=== PATIENT | female | born 1970 | race Asian ===

== ENCOUNTER 2016-10-18 15:58 | Emergency (ER) | payer MEDICAID, OTHER ==
[~2016-10-18] VITALS: Ht 167.6 cm; Wt 59.0 kg
[~2016-10-18 15:58] MED LIST: BENADRYL25 MG ORAL; GABAPENTIN100 MG ORAL; IBUPROFEN600 MG ORAL; NKM; NORCO 5-325 TA1 EAC1 ORAL; VIBRAMYCIN100 MG ORAL
[2016-10-18 16:10] VITALS: BP 127/74
[2016-10-18] MEDS ORDERED: DiphenhydrAMINE 50mg/ml Inj IM ONE (16:15)
[2016-10-18] MEDS ORDERED: Ipratropium 0.02% Inh Soln 2.5ml UD HHN ONE (16:15)
[2016-10-18] MEDS ORDERED: PredniSONE 20mg tab ORAL ONE (16:15)
[2016-10-18] MEDS ORDERED: Albuterol ud Inhalation HHN ONE (16:15)
[2016-10-18] MEDS ORDERED: PROMETHAZINE-D118 ML ORAL (16:51)
[2016-10-18] MEDS ORDERED: PREDNISONE20 MG ORAL (16:51)
[2016-10-18] MEDS ORDERED: PROAIR HFA8.5 GM INH (16:51)
--- NOTE | 2016-10-18 21:21 | Emergency Room Report ---
History of Present Illness General Chief Complaint: Dyspnea/Respdistress Source: Patient Present Illness HPI The patient is a 46 old female presenting for wheezing and a feeling of shortness of breath. She denies any recent travel but admits to being in close contact with someone who was diagnosed with bronchitis recently. She admits to having coughing for the past week and produced yellow and green sputum. She also admits to subjective fever and chills. She denies allergy but does admit taking azithromycin and touching a dog today. She began to feel increased wheezing and began to feel anxious and came to the ED. She denies any other symptoms including dizziness, CP, abd pain, hemoptysis, rash Allergies: Coded Allergies: PENICILLIN (Verified Allergy, Unknown, 12/19/14) Patient History Past Medical History: see triage record Pertinent Family History: none Last Menstrual Period: now Now: No Reviewed Nursing Documentation: PMH: Agreed, PSxH: Agreed Nursing Documentation-PMH Past Medical History: No History, Except For Review of Systems All Other Systems: negative except mentioned in HPI Physical Exam Vital Signs Date Time Temp Pulse Resp B/P Pulse Ox O2 Delivery O2 Flow Rate FiO2 10/18/16 16:00 98.1 84 2 130/71 93 Room Air 10/18/16 16:30 21 Sp02 EP Interpretation: reviewed, normal General Appearance: no apparent distress, alert, GCS 15, non-toxic Head: normocephalic, atraumatic Eyes: bilateral eye PERRL, bilateral eye normal inspection ENT: hearing grossly normal, normal pharynx, no angioedema, normal voice Neck: full range of motion, supple/symm/no masses Respiratory: chest non-tender, normal breath sounds, speaking full sentences, wheezing - diffuse Cardiovascular #1: regular rate, rhythm, no edema Musculoskeletal: back normal, gait/station normal, normal range of motion, non- tender Neurologic: alert, oriented x3, responsive, motor strength/tone normal, sensory intact, speech normal Psychiatric: judgement/insight normal, memory normal, mood/affect normal, no suicidal/homicidal ideation Skin: normal color, no rash, warm/dry, well hydrated Medical Decision Making PA Attestation Dr. Wahl is my supervising physician. Patient management was discussed with my supervising physician Diagnostic Impression: Primary Impression: Bronchitis ER Course The patient is a 46 old female presenting for wheezing and a feeling of shortness of breath Differential diagnoses considered but not limited to: Asthma, bronchitis, pneumonia, anxiety, anaphylaxis, among others PE: all vitals WNL. NAD HEENT unremarkable. No facial edema. oropharynx patent. Lungs: diffuse wheezing CXR unremarkable She is given a breathing treatment, oral steroids, and IM benadryl and feels better. She is told to follow up with primary doctor and possibly obtain an allergy panel. She will stop using azithromycin as this may be a cause for increased SOB. She will FU with PMD for change of antibiotic. ER precautions given Chest X-Ray Diagnostic Results Chest X-Ray Diagnostic Results : Chest X-Ray Ordered: Yes # of Views/Limited/Complete: 1 View Indication: Shortness of Breath EP Interpretation: Yes Interpretation: no consolidation, no effusion, no pneumothorax, no acute cardiopulmonary disease Impression: No acute disease Interpreting ER Provider: Dr. Vish SUNSHINE Scribe Text I am acting as scribe for my supervising physician. My supervising physician's interpretation of the chest xrays are there is no consolidation, no effusion, no acute cardiopulmonary disease, no pneumothorax Last Vital Signs Date Time Temp Pulse Resp B/P Pulse Ox O2 Delivery O2 Flow Rate FiO2 10/18/16 17:11 98.0 87 14 127/74 96 Room Air 10/18/16 16:30 21 Status: improved Disposition: HOME, SELF-CARE Condition: Improved Scripts D-Methorphan Hb/Prometh Hcl* (PROMETHAZINE-DM SYRUP*) 118 Ml Syrup 5 ML ORAL Q6H Y for For Cough, #118 ML 0 Refills Prov: TERZIAN,ALEXYS P.A. 10/18/16 Prednisone* (PREDNISONE*) 20 Mg Tablet 40 MG ORAL DAILY, #10 TAB Prov: TERZIAN,ALEXYS P.A. 10/18/16 Albuterol Sulfate* (PROAIR HFA*) 8.5 Gm Hfa.aer.ad 2 PUFFS INH Q6H, #8.5 GM 0 Refills Prov: TERZIAN,ALEXYS P.A. 10/18/16 Referrals: [facility]ERRIN (PCP) Patient Instructions: Acute Bronchitis Additional Instructions: I discussed my findings with the patient. All questions and concerns have been answered. Treatment and medication compliance have been addressed. I advised the patient that they need to follow up with PMD in 3-5 days. Return to ED if pain remains or worsens, cough worsens or remains, you notice blood in your sputum, you notice wheezing, you experience a fever, or if needed for any reason. Patient verbalized understanding of discharge instructions. ALEXYS GUERRERO Oct 18, 2016 21:21
--- NOTE | 2016-10-19 12:39 | Diagnostic Imaging Report ---
Indication: Chest pain Comparison: None A single view chest radiograph was obtained. Findings: Cardiomediastinal appearance is within normal limits for age. Pulmonary vascularity is appropriate. The diaphragmatic contour is smooth and costophrenic angles are sharp. No pleural effusions are identified. The bones are unremarkable. Impression: No acute findings
== END 2016-10-18 17:12 | disposition home or self-care (01) ==
LOC: EMR 16:55
DX: J40 Bronchitis, not specified as acute or chronic (principal); Z88.0 Allergy status to penicillin
CPT/HCPCS: 71010; 94640; 94664; 96372; 99284; J1200

== ENCOUNTER 2017-02-03 10:39 | Emergency (ER) | payer MEDICAID, OTHER ==
[~2017-02-03] VITALS: Ht 170.2 cm; Wt 56.2 kg
[~2017-02-03 10:39] MED LIST changes: +PREDNISONE20 MG ORAL; +PROAIR HFA8.5 GM INH; +PROMETHAZINE-D118 ML ORAL
[2017-02-03] MEDS: Albuterol ud Inhalation HHN SCH ×3 (11:26→11:58)
[2017-02-03] MEDS: Ipratropium 0.02% Inh Soln 2.5ml UD HHN SCH ×3 (11:26→11:58)
[2017-02-03] MEDS ORDERED: DiphenhydrAMINE 50mg/ml Inj IVP ONE (11:45)
[2017-02-03 11:51] VITALS: BP 128/79
[2017-02-03] MEDS ORDERED: ALBUTEROL SULF8.5 GM INH (12:26)
[2017-02-03] MEDS ORDERED: PREDNISONE20 MG ORAL (12:26)
[2017-02-03] MEDS ORDERED: CLARITIN-D 241 EACH PO (12:26)
[2017-02-03] MEDS ORDERED: PROMETHAZINE-C118 M1 ORAL (12:26)
[2017-02-03 12:27] VITALS: BP 128/79
--- NOTE | 2017-02-03 15:19 | Emergency Room Report ---
History of Present Illness General Chief Complaint: Upper Respiratory Illness Source: Patient Present Illness HPI 46-year-old female presents to ED for evaluation. Patient states her last 2 days she's been having a cough with shortness of breath. Patient states cough is productive with yellowish sputum. Feels like she is wheezing. Denies any prior history of asthma but states that earlier this year she did have bronchitis required an inhaler. Denies chest pain. Sick contacts or recent travel. Denies smoking or drug use. No other aggravating or leading factors. Denies any other associated symptom Allergies: Coded Allergies: PENICILLIN (Verified Allergy, Unknown, 12/19/14) Patient History Past Medical History: asthma Past Surgical History: none Pertinent Family History: none Social History: Denies: smoking, alcohol use, drug use Last Menstrual Period: 9 days ago Now: No Immunizations: UTD Reviewed Nursing Documentation: PMH: Agreed, PSxH: Agreed Nursing Documentation-PM Past Medical History: No History, Except For Hx Asthma: Yes Review of Systems All Other Systems: negative except mentioned in HPI Physical Exam Vital Signs Date Time Temp Pulse Resp B/P (MAP) Pulse Ox O2 Delivery O2 Flow Rate FiO2 02/03/17 10:46 97.9 73 16 128/79 94 Room Air 02/03/17 11:21 21 Sp02 EP Interpretation: reviewed, normal General Appearance: no apparent distress, alert, GCS 15, non-toxic Head: normocephalic Eyes: bilateral eye normal inspection, bilateral eye PERRL ENT: normal ENT inspection Neck: normal inspection Respiratory: wheezing Cardiovascular #1: regular rate, rhythm, no edema Gastrointestinal: normal inspection Rectal: deferred Genitourinary: no CVA tenderness Musculoskeletal: normal inspection Neurologic: alert, oriented x3, responsive, motor strength/tone normal, sensory intact, speech normal Psychiatric: normal inspection Skin: normal inspection Lymphatic: normal inspection Medical Decision Making Diagnostic Impression: Primary Impression: Bronchitis ER Course Hospital Course 46-year-old female presents to ED complaining of cough, wheezing Differential diagnoses include: URI, bronchitis, asthma/COPD, pneumonia Clinical course Patient placed on stretcher. After initial history and physical I ordered prednisone and nebulizer treatment. Upon reassessment patient states cough and symptoms have improved. Findings consistent with bronchitis. Diagnosis - bronchitis Stable and discharged home with prescriptions for Rx prednisone, cough syrup, claritin, albuterol. Instructed to followup with PMD. Return to ED if symptoms recur or worsen Last Vital Signs Date Time Temp Pulse Resp B/P (MAP) Pulse Ox O2 Delivery O2 Flow Rate FiO2 02/03/17 12:27 97.9 78 18 128/79 97 Room Air 21 Status: improved Disposition: HOME, SELF-CARE Condition: Stable Scripts Loratadine/Pseudoephedrine (CLARITIN-D 24 HOUR TABLET) 1 Each Tab.er.24h 1 TAB PO DAILY, #30 TAB Prov: KERI JAQUEZ M.D. 02/03/17 Codeine/Promethazine Hcl* (PROMETHAZINE-CODEINE SYRUP*) 118 Ml Syrup 5 ML ORAL Q4H Y for For Cough, #118 ML 0 Refills Prov: KERI JAQUEZ M.D. 02/03/17 Prednisone* (PREDNISONE*) 20 Mg Tablet 40 MG ORAL DAILY, #10 TAB Prov: KERI JAQUEZ M.D. 02/03/17 Albuterol Sulfate* (ALBUTEROL SULFATE MDI*) 8.5 Gm Hfa.aer.ad 2 PUFF INH Q4H Y for cough/wheezing, #1 EA 0 Refills Prov: KERI JAQUEZ M.D. 02/03/17 Referrals: NOT CHOSEN [facility]/,REFERRING Patient Instructions: Acute Bronchitis, [id number]-Hsni KERI JAQUEZ M.D. Feb 03, 2017 15:19
== END 2017-02-03 12:33 | disposition home or self-care (01) ==
LOC: EMR 11:49
DX: J45.909 Unspecified asthma, uncomplicated (principal); Z88.0 Allergy status to penicillin
CPT/HCPCS: 94640; 94664; 96374; 99284

== ENCOUNTER 2017-04-15 09:13 | Emergency (ER) | payer MEDICAID, OTHER ==
[~2017-04-15] VITALS: Ht 162.6 cm; Wt 59.0 kg
[~2017-04-15 09:13] MED LIST changes: +ALBUTEROL SULF8.5 GM INH; +CLARITIN-D 241 EACH PO; +PROMETHAZINE-C118 M1 ORAL
[2017-04-15] MEDS ORDERED: Ketorolac 60mg Inj IM ONE (09:30)
--- NOTE | 2017-04-15 09:36 | Emergency Room Report ---
History of Present Illness General Chief Complaint: General Complaint Present Illness HPI Patient is a 47-year-old female presented after increased right-sided shoulder pain. Patient had increased pain with movement pain is sharp in nature. It did not radiate. Patient reports having severe pain starting this morning. The patient reports having recent upper respiratory symptoms with a intermittently productive cough. She denies any fever. She reports having prior history of bilateral nerve compression had diagnosed by EMG. She denies any recent trauma. The patient states she's a former smoker. The patient reports trying to lose weight and having some weight loss Allergies: Coded Allergies: PENICILLIN (Verified Allergy, Unknown, 12/19/14) Patient History Past Medical History: see triage record Reviewed Nursing Documentation: PMH: Agreed, PSxH: Agreed Nursing Documentation-PMH Hx Asthma: Yes Review of Systems All Other Systems: negative except mentioned in HPI Physical Exam Vital Signs Date Time Temp Pulse Resp B/P (MAP) Pulse Ox O2 Delivery O2 Flow Rate FiO2 04/15/17 09:17 98.1 64 20 113/67 99 Room Air General Appearance: well appearing, no apparent distress, alert, GCS 15 Head: normocephalic, atraumatic ENT: hearing grossly normal, normal voice Neck: full range of motion, supple Respiratory: no respiratory distress, speaking full sentences Cardiovascular #1: normal peripheral pulses, regular rate, rhythm Gastrointestinal: normal inspection, non tender, soft Musculoskeletal: normal inspection, back normal, gait/station normal, no calf tenderness Neurologic: normal inspection, alert, oriented x3, wearing apparel presser III-XII nml as tested, normal gait Psychiatric: mood/affect normal Skin: no rash Medical Decision Making Diagnostic Impression: Primary Impression: Shoulder pain, right ER Course Patient presented for right shoulder pain. Differential diagnoses included was not limited to fracture, dislocation, a.c. separation, septic joint, arthritis, gallstones, ulcer.Because of complexity of patient's case imaging studies were ordered. X-ray of the shoulder 3 views read by radiology showed no acute fracture or dislocation The patient was noted to have normal range of motion to her shoulder. The shoulder appeared to be somewhat tender posteriorly. The patient was advised that she may need a bone scan that she had persistent pain. The patient is advised to follow up with primary care doctor in 1-2 days. Patient is advised to return if any worsening condition or if any changes in status that are concerning. This report is dictated with [employer] linemarker software which may occasionally lead to discrepancies related to use of this software. Chest X-Ray Diagnostic Results Chest X-Ray Diagnostic Results : Chest X-Ray Ordered: Yes # of Views/Limited/Complete: 1 View Indication: Other - weight loss EP Interpretation: No Impression: No acute disease Last Vital Signs Date Time Temp Pulse Resp B/P (MAP) Pulse Ox O2 Delivery O2 Flow Rate FiO2 04/15/17 09:17 98.1 64 20 113/67 99 Room Air Status: improved Disposition: HOME, SELF-CARE Condition: Stable Scripts Naproxen* (NAPROXEN*) 375 Mg Tablet. 375 MG ORAL TWICE A DAY, #14 TAB Prov: Ciaran Wahl 04/15/17 Ciaran Wahl Apr 15, 2017 09:36
[2017-04-15] MEDS ORDERED: NAPROXEN375 M2 ORAL (10:11)
[2017-04-15 10:15] VITALS: BP 117/60
--- NOTE | 2017-04-15 10:18 | Diagnostic Imaging Report ---
Indication: Pain Technique: XRAY Shoulder Compl R Comparison: None Findings: There is no acute fracture or dislocation. Somewhat serpentine density projecting lateral to the shoulder noted on frontal views is likely artifactual and external to the patient as this is not seen on the transscapular Y view. Imaged right lung is clear. No radiopaque foreign body seen. Impression: No acute bony or articular abnormality.
--- NOTE | 2017-04-15 10:19 | Diagnostic Imaging Report ---
Indication: Dyspnea Technique: XRAY Chest 1v Comparison: 10/18/2016 Findings: Right size and mediastinal contours are within normal limits. There is no focal airspace consolidation, pleural effusion or pneumothorax. There is unchanged levoscoliosis of the lower thoracic/upper lumbar the lumbar spine. No acute osseous abnormality seen. Abdominal shield in place. Impression: No radiographic evidence of acute cardiopulmonary disease.
== END 2017-04-15 10:15 | disposition home or self-care (01) ==
LOC: EMR 09:38
DX: M25.511 Pain in right shoulder (principal); J45.909 Unspecified asthma, uncomplicated; Z88.0 Allergy status to penicillin
CPT/HCPCS: 71045; 96372; 99283

== ENCOUNTER 2017-09-15 10:56 | Emergency (ER) | payer MEDICAID, OTHER ==
[~2017-09-15] VITALS: Ht 170.2 cm; Wt 55.3 kg
[~2017-09-15 10:56] MED LIST changes: +NAPROXEN375 M2 ORAL
[2017-09-15 11:07] VITALS: BP 120/66
[2017-09-15 12:23] VITALS: BP 111/65
--- NOTE | 2017-09-15 12:55 | Emergency Room Report ---
History of Present Illness General Chief Complaint: General Complaint Source: Patient, Medical Record Present Illness HPI 47-year-old female presents ED complaining of right shoulder pain and palpitations. States he has history of chronic shoulder pain for last 1 year. In any known injury to her shoulder. Pain is sharp, 10 out of 10, worse with motion. States that she was diagnosed with ulnar nerve impingement at [facility]. Has not seen orthopedics. Patient states that she noted some palpitations for the last 2 days. States occasionally she notes her heart "skipping a beat". Has happened a few times. Denies any symptoms at this time. Denies any chest pain or shortness of breath. Denies any known cardiac history. No other aggravating or relieving factors. Denies any other associated symptoms Allergies: Coded Allergies: PENICILLIN (Verified Allergy, Unknown, 12/19/14) Patient History Past Medical History: asthma Past Surgical History: none Pertinent Family History: none Social History: Denies: smoking, alcohol use, drug use Last Menstrual Period: 09/11/17 Now: No Immunizations: UTD Reviewed Nursing Documentation: PMH: Agreed; PSxH: Agreed Nursing Documentation-PMH Past Medical History: No History, Except For Hx Asthma: Yes Review of Systems All Other Systems: negative except mentioned in HPI Physical Exam Vital Signs Date Time Temp Pulse Resp B/P (MAP) Pulse Ox O2 Delivery O2 Flow Rate FiO2 09/15/17 11:07 98.3 76 18 120/66 99 Room Air 98.2 Sp02 EP Interpretation: reviewed, normal General Appearance: no apparent distress, alert, GCS 15, non-toxic Head: normocephalic, atraumatic Eyes: bilateral eye normal inspection, bilateral eye PERRL ENT: hearing grossly normal, normal pharynx, no angioedema, normal voice Neck: full range of motion, supple/symm/no masses Respiratory: chest non-tender, lungs clear, normal breath sounds, speaking full sentences Cardiovascular #1: regular rate, rhythm, no edema Cardiovascular #2: 2+ carotid (R), 2+ carotid (L), 2+ radial (R), 2+ radial (L) , 2+ dorsalis pedis (R), 2+ dorsalis pedis (L) Gastrointestinal: normal bowel sounds, non tender, soft, non-distended, no guarding, no rebound Rectal: deferred Genitourinary: normal inspection, no CVA tenderness Musculoskeletal: back normal, gait/station normal, normal range of motion, tender - R shoulder Neurologic: alert, oriented x3, responsive, motor strength/tone normal, sensory intact, speech normal Psychiatric: judgement/insight normal, memory normal, mood/affect normal, no suicidal/homicidal ideation Reflexes: 3+ bicep (R), 3+ bicep (L), 3+ tricep (R), 3+ tricep (L), 3+ knee (R) , 3+ knee (L) Skin: normal color, no rash, warm/dry, well hydrated Lymphatic: no adenopathy Medical Decision Making Diagnostic Impression: Primary Impression: Shoulder pain Qualified Codes: M25.511 - Pain in right shoulder; G89.29 - Other chronic pain Additional Impressions: Palpitations Opioid dependence Qualified Codes: F11.29 - Opioid dependence with unspecified opioid-induced disorder ER Course Hospital Course 47-year-old female presents ED complaining of right shoulder pain 1 year. Also complaining of palpitations Differential diagnoses include: Fracture, dislocation, sprain, contusion, bursitis Clinical course Patient placed on stretcher. After initial history, physical exam reveals an middle-aged female in no acute distress. There is full range of motion to the right shoulder. No crepitus. Patient documents pain. However shows no signs of distress during evaluation. No sensory deficits. 5 out of 5 motor strength. Reviewed EMR patient has been here multiple times for pain-related complaints. Patient did have x-ray previously. I reviewed CURES and patient is receiving between 60 and 90 tablets of [place] monthly Patient did request MRI. I explained that there is no emergent indication for MRI as the pain is chronic and can be performed when necessary by orthopedics as outpatient. I will provide orthopedic referral EKGnormal sinus rhythm no acute ischemic changes interpreted by me. No evidence of arrhythmia or palpitations. We'll provide cardiology referral Diagnosis - shoulder pain, palpitations, opioid dependence stable and discharged to home. Follow-up with orthopedics, cardiology. Followup with PMD. Return to ED if symptoms recur or worsen EKG Diagnostic Results Rate: normal Rhythm: NSR ST Segments: no acute changes ASA given to the pt in ED: No Rhythm Strip Diag. Results EP Interpretation: yes Rhythm: NSR, no PVC's, no ectopy Last Vital Signs Date Time Temp Pulse Resp B/P (MAP) Pulse Ox O2 Delivery O2 Flow Rate FiO2 09/15/17 12:23 98.0 61 17 111/65 100 Room Air 98.3 Status: improved Disposition: HOME, SELF-CARE Condition: Stable Referrals: Jose Jaquez MD, David B. MD NOT CHOSEN IPA/MD,REFERRING Patient Instructions: Palpitations, [id number] Aurelio Chapman MD Sep 15, 2017 12:55
--- NOTE | 2017-09-17 12:17 | Cardiology Report ---
APPROVED REPORT EKG Measurement Heart [id number] Normal sinus rhythm Normal ECG
== END 2017-09-15 12:23 | disposition home or self-care (01) ==
LOC: EMR 11:57
DX: M25.511 Pain in right shoulder (principal); R00.2 Palpitations; F11.20 Opioid dependence, uncomplicated; J45.909 Unspecified asthma, uncomplicated
CPT/HCPCS: 93005; 99283

== ENCOUNTER 2018-12-05 09:59 | Emergency (ER) | payer MEDICAID ==
[~2018-12-05] VITALS: Ht 170.2 cm; Wt 54.4 kg
--- NOTE | 2018-12-05 10:10 | NUR ---
ED Nurse Note: PAtient walked into ED c/o left upper quadrant pain that has been an on going issue for the past 4 days, states a dull like pain accopanied by "fluttering" of abdomen, denies any nausea,vomiting, diarrhea, reports her pain a 10/10 pain. patient is alert and oriented x4. IV started on left ac 20 gauge, labs sent down, will wait for further orders
[2018-12-05 10:15] VITALS: BP 130/76
--- NOTE | 2018-12-05 10:28 | Emergency Room Report ---
History of Present Illness General Chief Complaint: Abdominal Pain Source: Patient Present Illness HPI Patient presents with complaints of left mid and lower abdominal pain Reports ongoing for the past 3 days denies any nausea vomiting denies any diarrhea denies any chest pain patient does report that she has a palpitation sensation in the left lower chest area The symptoms do not appear to be correlated denies any shortness of breath or pleurisy Denies any focal weakness Patient reports that she feels like it is a menstrual cramp however more persistent Denies any dysuria frequency Allergies: Coded Allergies: PENICILLIN (Verified Allergy, Unknown, 12/19/14) Patient History Past Medical History: see triage record Now: No Reviewed Nursing Documentation: PMH: Agreed; PSxH: Agreed Nursing Documentation-PMH Past Medical History: No Stated History Hx Asthma: Yes Review of Systems All Other Systems: negative except mentioned in HPI Physical Exam Vital Signs Date Time Temp Pulse Resp B/P (MAP) Pulse Ox O2 Delivery O2 Flow Rate FiO2 12/05/18 10:02 98.1 72 18 130/76 (94) 99 Room Air Sp02 EP Interpretation: reviewed, normal General Appearance: well appearing, no apparent distress Head: normocephalic, atraumatic Eyes: bilateral eye PERRL, bilateral eye EOMI ENT: hearing grossly normal, normal pharynx, TMs + canals normal, uvula midline Neck: full range of motion, supple, no meningismus, no bony tend Respiratory: lungs clear, normal breath sounds, no rhonchi, no respiratory distress, no retraction, no accessory muscle use Cardiovascular #1: normal peripheral pulses, regular rate, rhythm, no edema, no gallop, no JVD, no murmur Gastrointestinal: normal bowel sounds, non tender, soft, no mass, no organomegaly, non-distended, no guarding, no hernia, no pulsatile mass, no rebound Genitourinary: no CVA tenderness Musculoskeletal: normal inspection Neurologic: oriented x3, responsive, plant production manager III-XII nml as tested, motor strength/ tone normal, sensory intact Psychiatric: mood/affect normal Lymphatic: normal inspection, no adenopathy Medical Decision Making Diagnostic Impression: Primary Impression: Palpitations Additional Impression: Abdominal pain ER Course Multiple differentials and consideration including but not limited to cardiac cardiopulmonary other abdominal pathology such as diverticulitis,, ovarian torsion, UTI Patient's abdominal exam is fairly benign Initial blood work and EKG are at baseline levels patient remains asymptomatic and Hemodynamically stable repeat exam reveals continuing soft abdomen And at this time patient is stable for conservative outpatient trial Labs Test 12/05/18 10:15 White Blood Count 5.9 K/UL (4.8-10.8) Red Blood Count 4.19 M/UL (4.20-5.40) Hemoglobin 13.4 G/DL (12.0-16.0) Hematocrit 39.9 % (37.0-47.0) Mean Corpuscular Volume 95 FL (80-99) Mean Corpuscular Hemoglobin 31.8 PG (27.0-31.0) Mean Corpuscular Hemoglobin Concent 33.5 G/DL (32.0-36.0) Red Cell Distribution Width 11.4 % (11.6-14.8) Platelet Count 272 K/UL (150-450) Mean Platelet Volume 6.6 FL (6.5-10.1) Neutrophils (%) (Auto) 73.7 % (45.0-75.0) Lymphocytes (%) (Auto) 18.3 % (20.0-45.0) Monocytes (%) (Auto) 4.6 % (1.0-10.0) Eosinophils (%) (Auto) 2.1 % (0.0-3.0) Basophils (%) (Auto) 1.4 % (0.0-2.0) Urine Color Pale yellow Urine Appearance Clear Urine pH 6 (4.5-8.0) Urine Specific [place] 1.010 (1.005-1.035) Urine Protein Negative (NEGATIVE) Urine Glucose (UA) Negative (NEGATIVE) Urine Ketones Negative (NEGATIVE) Urine Blood Negative (NEGATIVE) Urine Nitrite Negative (NEGATIVE) Urine Bilirubin Negative (NEGATIVE) Urine Urobilinogen Normal MG/DL (0.0-1.0) Urine Leukocyte Esterase Negative (NEGATIVE) Urine HCG, Qualitative Negative (NEGATIVE) Sodium Level 142 MMOL/L (136-145) Potassium Level 3.9 MMOL/L (3.5-5.1) Chloride Level 107 MMOL/L (98-107) Carbon Dioxide Level 24 MMOL/L (21-32) Anion Gap 11 mmol/L (5-15) Blood Urea Nitrogen 6 mg/dL (7-18) Creatinine 0.5 MG/DL (0.55-1.30) Estimat Glomerular Filtration Rate > 60 mL/min (>60) Glucose Level 95 MG/DL (74-106) Calcium Level 9.0 MG/DL (8.5-10.1) Total Bilirubin 0.4 MG/DL (0.2-1.0) Aspartate Amino Transf (AST/SGOT) 8 U/L (15-37) Alanine Aminotransferase (ALT/SGPT) 13 U/L (12-78) Alkaline Phosphatase 46 U/L (46-116) Total Protein 6.8 G/DL (6.4-8.2) Albumin 3.8 G/DL (3.4-5.0) Globulin 3.0 g/dL Albumin/Globulin Ratio 1.3 (1.0-2.7) Lipase 111 U/L (73-393) EKG Diagnostic Results Rate: normal Rhythm: NSR ST Segments: no acute changes Rhythm Strip Diag. Results EP Interpretation: yes Rate: 60 Rhythm: NSR, no PVC's, no ectopy Last Vital Signs Date Time Temp Pulse Resp B/P (MAP) Pulse Ox O2 Delivery O2 Flow Rate FiO2 12/05/18 10:15 98.1 72 18 130/76 99 Room Air Status: improved Disposition: HOME, SELF-CARE Condition: Improved Additional Instructions: Patient is provided with the discharge instructions notified to follow up with primary doctor in the next 2-3 days otherwise return to the er with any worsening symptoms. Please note that this report is being documented using [employer] technology. This can lead to erroneous entry secondary to incorrect interpretation by the dictating instrument. Lillian Norton DO Dec 05, 2018 10:28
[2018-12-05 10:43] LABS: APPEARANCE,URINE CLEAR; BILIRUBIN, URINE NEGATIVE (NEGATIVE); COLOR,URINE PALE YELLOW; GLUCOSE, URINE (UA) NEGATIVE (NEGATIVE); KETONES,URINE NEGATIVE (NEGATIVE); LEUKOCYTE ESTERASE ,URINE NEGATIVE (NEGATIVE); NITRITE,URINE NEGATIVE (NEGATIVE); PH,URINE 6 (4.5-8.0); PROTEIN,URINE NEGATIVE (NEGATIVE); UROBILINOGEN,URINE NORMAL MG/DL (0.0-1.0)
[2018-12-05 10:48] LABS: BASOPHILS % (AUTO) 1.4 % (0.0-2.0); EOSINOPHILS % (AUTO) 2.1 % (0.0-3.0); HEMATOCRIT 39.9 % (37.0-47.0); HEMOGLOBIN 13.4 G/DL (12.0-16.0); LYMPHOCYTES % (AUTO) 18.3 % (20.0-45.0); MEAN CORPUSCULAR VOLUME 95 FL (80-99); MONOCYTES % (AUTO) 4.6 % (1.0-10.0); NEUTROPHILS % (AUTO) 73.7 % (45.0-75.0); PLATELET COUNT 272 K/UL (150-450); RED BLOOD COUNT 4.19 M/UL (4.20-5.40); RED CELL DISTRIBUTION WIDTH 11.4 % (11.6-14.8); WHITE BLOOD COUNT 5.9 K/UL (4.8-10.8)
[2018-12-05 11:07] LABS: ANION GAP 11 mmol/L (5-15); BLOOD UREA NITROGEN 6 mg/dL (7-18); CARBON DIOXIDE 24 MMOL/L (21-32); CHLORIDE 107 MMOL/L (98-107); CREATININE 0.5 MG/DL (0.55-1.30); POTASSIUM 3.9 MMOL/L (3.5-5.1); SODIUM 142 MMOL/L (136-145)
[2018-12-05 11:12] LABS: ALANINE AMINOTRANSFERASE 13 U/L (12-78); ALBUMIN 3.8 G/DL (3.4-5.0); ALBUMIN/GLOBULIN RATIO 1.3 (1.0-2.7); ALKALINE PHOSPHATASE 46 U/L (46-116); ASPARTATE AMINO TRANSFERASE 8 U/L (15-37); BILIRUBIN,TOTAL 0.4 MG/DL (0.2-1.0)
[2018-12-05 11:48] VITALS: BP 122/70
--- NOTE | 2018-12-05 11:48 | NUR ---
ER DISCHARGE NOTE: Patient is cleared to be discharged per ERMD, pt is aox4, on room air, with stable vital signs. pt was given dc and prescription instructions, pt was able to verbalize understanding, pt id band and iv site removed without complications. pt is able to ambulate with steady gait. pt took all belongings.
--- NOTE | 2018-12-07 15:25 | Cardiology Report ---
APPROVED REPORT EKG Measurement Heart [id number] Sinus bradycardia Otherwise normal ECG
== END 2018-12-05 11:49 | disposition home or self-care (01) ==
LOC: EMR 10:38
DX: R10.9 Unspecified abdominal pain (principal); I48.91 Unspecified atrial fibrillation
CPT/HCPCS: 36415; 80053; 81003; 81025; 83690; 85025; 93005; 99283